=== PATIENT | female | born 1975 | race American Indian/Alaskan Native ===

== ENCOUNTER 2016-09-16 08:50 | Emergency (ER) | payer SELFPAY ==
[2016-09-16 09:09] VITALS: BP 125/77
--- NOTE | 2016-09-16 10:43 | Emergency Department Report ---
- General Chief Complaint: Upper Respiratory Infection Stated Complaint: GENERAL BODY PAIN Time Seen by Provider: 09/16/16 10:14 Source: patient Mode of arrival: Ambulatory Limitations: No Limitations - History of Present Illness Initial Comments: Patient here reports cough, body ache, headache and sore throat and fever. Denies any nausea vomiting. She said this started a couple days ago. She says she felt hot but she did not actually take her temperature. Pain is 10 out of 10 generalized. Denies any drooling or difficulty swallowing. Denies any chest pain. MD Complaint: fever, cough, sore throat, rhinorrhea, nasal congestion Onset/Timin -: days(s) Severity: severe Severity scale (0 -10): 10 Quality: aching Consistency: constant Improves With: OTC cold medicine Worsens With: nothing Context: sick contacts Associated Symptoms: fever, chills, myalgias, diaphoresis, headache, rhinorrhea , nasal congestion, sore throat, cough. denies: stiff neck, chest pain, shortness of breath, abdominal pain, nausea, vomiting, diarrhea, dysuria, rash, confusion, right sweats, weight loss, epistaxis, hoarseness, ear pain Treatments Prior to Arrival: "cold medicine" - Related Data Previous Rx's Medication Instructions Recorded Last Taken Type Acetaminophen/Codeine [Tylenol #3] 1 tab PO Q6H PRN #15 tab 12/27/14 Unknown Rx Ibuprofen [Motrin] 800 mg PO Q8H #30 tablet 12/27/14 Unknown Rx Brompheniramine/Pseudoephed/Dm 10 ml PO TID PRN #150 syrup 09/16/16 Unknown Rx [Bromfed Dm Cough Syrup] Fluticasone [Flonase] 1 spray NS QDAY #1 bottle 09/16/16 Unknown Rx Ibuprofen [Motrin] 600 mg PO Q8H PRN #21 tablet 09/16/16 Unknown Rx Promethazine [Phenergan TAB] 25 mg PO Q8HR PRN #15 tab 09/16/16 Unknown Rx Allergies Allergy/AdvReac Type Severity Reaction Status Date / Time No Known Allergies Allergy Verified 12/27/14 07:32 ED Review of Systems ROS: Stated complaint: GENERAL BODY PAIN Other details as noted in HPI Comment: All other systems reviewed and negative Constitutional: chills, fever Eyes: denies: eye discharge ENT: throat pain, congestion. denies: ear pain Respiratory: cough. denies: orthopnea, shortness of breath, SOB with exertion, SOB at rest, stridor, wheezing Cardiovascular: denies: chest pain, palpitations, edema, syncope Gastrointestinal: denies: abdominal pain, nausea, vomiting, diarrhea Musculoskeletal: arthralgia. denies: back pain Skin: denies: rash Neurological: headache. denies: weakness, numbness, paresthesias, confusion, abnormal gait, vertigo ED Past Medical Hx - Past Medical History Previous Medical History?: No Hx Hypertension: No - Surgical History Past Surgical History?: No - Family History Family history: no significant - Social History Smoking Status: Never Smoker Substance Use Type: None - Medications Home Medications: Home Medications Medication Instructions Recorded Confirmed Last Taken Type Acetaminophen/Codeine [Tylenol #3] 1 tab PO Q6H PRN #15 tab 12/27/14 Unknown Rx Ibuprofen [Motrin] 800 mg PO Q8H #30 tablet 12/27/14 Unknown Rx Brompheniramine/Pseudoephed/Dm 10 ml PO TID PRN #150 syrup 09/16/16 Unknown Rx [Bromfed Dm Cough Syrup] Fluticasone [Flonase] 1 spray NS QDAY #1 bottle 09/16/16 Unknown Rx Ibuprofen [Motrin] 600 mg PO Q8H PRN #21 tablet 09/16/16 Unknown Rx Promethazine [Phenergan TAB] 25 mg PO Q8HR PRN #15 tab 09/16/16 Unknown Rx ED Physical Exam - General Limitations: No Limitations General appearance: alert, in no apparent distress - Head Head exam: Present: atraumatic, normocephalic, normal inspection - Eye Eye exam: Present: normal appearance, PERRL, EOMI. Absent: periorbital swelling , periorbital tenderness Pupils: Present: normal accommodation - ENT ENT exam: Present: normal exam, normal orophraynx, mucous membranes moist, TM's normal bilaterally (bilateral TMs congested without erythema), normal external ear exam, other (bilateral nasal mucosa congested with erythema. Maxillary and frontal sinuses nontender to palpate.) - Neck Neck exam: Present: normal inspection, full ROM. Absent: tenderness, meningismus, lymphadenopathy - Respiratory Respiratory exam: Present: normal lung sounds bilaterally. Absent: respiratory distress, wheezes, rales, rhonchi, stridor, chest wall tenderness, accessory muscle use - Cardiovascular Cardiovascular Exam: Present: normal rhythm, tachycardia, normal heart sounds - GI/Abdominal GI/Abdominal exam: Present: soft, normal bowel sounds. Absent: distended, tenderness, guarding, rebound, rigid - Extremities Exam Extremities exam: Present: normal inspection, full ROM, normal capillary refill. Absent: tenderness, pedal edema, joint swelling, calf tenderness - Back Exam Back exam: Present: normal inspection, full ROM. Absent: tenderness, CVA tenderness (R), CVA tenderness (L), muscle spasm, paraspinal tenderness, rash noted - Neurological Exam Neurological exam: Present: alert, oriented X3, normal gait, reflexes normal. Absent: motor sensory deficit - Psychiatric Psychiatric exam: Present: normal affect, normal mood - Skin Skin exam: Present: warm, dry, intact, normal color, rash ED Course Vital Signs 09/16/16 09/16/16 09:06 11:05 Temperature 99.2 F Pulse Rate 104 H Respiratory 20 18 Rate Blood Pressure 125/77 O2 Sat by Pulse 99 Oximetry Vital Signs 09/16/16 09/16/16 09/16/16 09:06 11:05 12:01 Temperature 99.2 F Pulse Rate 104 H 92 H Respiratory 20 18 Rate Blood Pressure 125/77 O2 Sat by Pulse 99 97 Oximetry - Reevaluation(s) Reevaluation #1: 09/16/16 11:49 Patient given Motrin 800 mg in emergency room for bodyache. ED Medical Decision Making - Lab Data test negative. Influenza A and B- - Radiology Data Radiology results: image reviewed interpreted by me: X-ray reviewed by myself and Dr. Zayas and patient doesn't have any acute cardiopulmonary processes. - Medical Decision Making ED course: I discussed with patient her chest x-ray, influenza and test result. I discussed with her that she has a viral syndrome and she does not need antibiotic. She was understanding. Patient discharged home with prescription for Claritin, Flonase and Bromfed. Critical care attestation.: If time is entered above; I have spent that time in minutes in the direct care of this critically ill patient, excluding procedure time. ED Disposition Clinical Impression: Viral syndrome, Cough Disposition: DISCHARGED TO HOME OR SELFCARE Is pt being admited?: No Does the pt Need Aspirin: No Condition: Stable Instructions: Viral Syndrome (ED), Acute Cough (ED) Additional Instructions: Please increase her fluid intake to 2-3 L of fluid per day. [id number] Motrin for the next 1-2 days every 4-6 hours to keep temperature down. You can take vitamin C as immune system booster Prescriptions: Brompheniramine/Pseudoephed/Dm [Bromfed Dm Cough Syrup] 10 ml PO TID PRN #150 syrup PRN Reason: Cough Fluticasone [Flonase] 1 spray NS QDAY #1 bottle Ibuprofen [Motrin] 600 mg PO Q8H PRN #21 tablet PRN Reason: Pain Promethazine [Phenergan TAB] 25 mg PO Q8HR PRN #15 tab PRN Reason: Nausea Referrals: PRIMARY CARE, [Primary Care Provider] - 3-5 Days Forms: Work/School Release Form(ED), Accompanied Note
[2016-09-16] MEDS ORDERED: MOTRIN PO ONE (10:44)
[2016-09-16] MEDS ORDERED: ZOFRAN ODT PO ONE (10:52)
--- NOTE | 2016-09-16 12:01 | XRay Report ---
CHEST 2 VIEWS INDICATION: Cough, fever. COMPARISON: 06/27/2007. FINDINGS: PA and lateral chest radiographs demonstrate normal cardiomediastinal silhouette. Clear lungs. Intact bones. CONCLUSION: No acute disease in the chest. Thank you for the opportunity to participate in this patient's care.
== END 2016-09-16 12:11 | disposition home or self-care (01) ==
LOC: ED 08:50
DX: B34.9 Viral infection, unspecified (principal); R05 Cough
CPT/HCPCS: 71020; 81025; 87400; Q0162

== ENCOUNTER 2021-08-22 10:01 | Emergency (ER) | payer OTHER ==
--- NOTE | 2021-08-22 10:55 | Emergency Department Report ---
- General Chief Complaint: Upper Respiratory Infection Stated Complaint: NO SMELL FOR A MONTH Time Seen by Provider: 08/22/21 10:37 Source: patient Mode of arrival: Ambulatory Limitations: No Limitations - History of Present Illness Initial Comments: Patient is a 46-year-old female presents emergency room with complaints of a cough that began a week and a half ago. She has associated mucus production. Patient states that she is also been experiencing shortness of breath, nasal congestion, nausea. She states yesterday she had some vomiting that has resolved and she has been able to tolerate p.o. intake. She denies any fever, body aches, diarrhea, chest pain. Patient states that she has been tested for COVID-19 twice and reports that it was negative. She states that she has also lost her sense of smell. She has a past medical history of hypertension and borderline diabetes. No allergies to medications. - Related Data Previous Rx's Medication Instructions Recorded Last Taken Type Acetaminophen/Codeine [Tylenol #3] 1 tab PO Q6H PRN #15 tab 12/27/14 Unknown Rx Ibuprofen [Motrin] 800 mg PO Q8H #30 tablet 12/27/14 Unknown Rx Brompheniramine/Pseudoephed/Dm 10 ml PO TID PRN #150 syrup 09/16/16 Unknown Rx [Bromfed Dm Cough Syrup] Fluticasone [Flonase] 1 spray NS QDAY #1 bottle 09/16/16 Unknown Rx Ibuprofen [Motrin] 600 mg PO Q8H PRN #21 tablet 09/16/16 Unknown Rx Promethazine [Phenergan TAB] 25 mg PO Q8HR PRN #15 tab 09/16/16 Unknown Rx Amoxicillin/Potassium Clav 1 each PO BID #20 tablet 07/28/18 Unknown Rx [Augmentin 875-125 Tablet] Ibuprofen [Ibuprofen 800] 800 mg PO TID PRN #30 tablet 07/28/18 Unknown Rx diphenhydrAMINE [Benadryl CAP] 25 mg PO Q8HR PRN #30 capsule 07/28/18 Unknown Rx Albuterol Sulfate [Proventil Hfa] 1 puff IH TID PRN #1 08/22/21 Unknown Rx Benzonatate [Tessalon Perles] 100 mg PO Q8HR PRN #12 cap 08/22/21 Unknown Rx Fluticasone [Flonase] 1 spray NS QDAY #1 bottle 08/22/21 Unknown Rx Prednisone [predniSONE 10 mg 10 mg PO .TAPER #1 08/22/21 Unknown Rx (6-Day Pack, 21 Tabs)] guaiFENesin ER [Mucinex ER] 600 mg PO Q12H #14 tab 08/22/21 Unknown Rx Allergies Allergy/AdvReac Type Severity Reaction Status Date / Time No Known Allergies Allergy Verified 12/27/14 07:32 ED Review of Systems ROS: Stated complaint: NO SMELL FOR A MONTH Other details as noted in HPI Comment: All other systems reviewed and negative ED Past Medical Hx - Past Medical History Previous Medical History?: Yes Hx Hypertension: Yes Hx Diabetes: Yes (pre-diabetes) - Surgical History Past Surgical History?: No - Social History Smoking Status: Never Smoker Substance Use Type: None - Medications Home Medications: Home Medications Medication Instructions Recorded Confirmed Last Taken Type Acetaminophen/Codeine [Tylenol #3] 1 tab PO Q6H PRN #15 tab 12/27/14 Unknown Rx Ibuprofen [Motrin] 800 mg PO Q8H #30 tablet 12/27/14 Unknown Rx Brompheniramine/Pseudoephed/Dm 10 ml PO TID PRN #150 syrup 09/16/16 Unknown Rx [Bromfed Dm Cough Syrup] Fluticasone [Flonase] 1 spray NS QDAY #1 bottle 09/16/16 Unknown Rx Ibuprofen [Motrin] 600 mg PO Q8H PRN #21 tablet 09/16/16 Unknown Rx Promethazine [Phenergan TAB] 25 mg PO Q8HR PRN #15 tab 09/16/16 Unknown Rx Amoxicillin/Potassium Clav 1 each PO BID #20 tablet 07/28/18 Unknown Rx [Augmentin 875-125 Tablet] Ibuprofen [Ibuprofen 800] 800 mg PO TID PRN #30 tablet 07/28/18 Unknown Rx diphenhydrAMINE [Benadryl CAP] 25 mg PO Q8HR PRN #30 capsule 07/28/18 Unknown Rx Albuterol Sulfate [Proventil Hfa] 1 puff IH TID PRN #1 08/22/21 Unknown Rx Benzonatate [Tessalon Perles] 100 mg PO Q8HR PRN #12 cap 08/22/21 Unknown Rx Fluticasone [Flonase] 1 spray NS QDAY #1 bottle 08/22/21 Unknown Rx Prednisone [predniSONE 10 mg 10 mg PO .TAPER #1 08/22/21 Unknown Rx (6-Day Pack, 21 Tabs)] guaiFENesin ER [Mucinex ER] 600 mg PO Q12H #14 tab 08/22/21 Unknown Rx ED Physical Exam - General Limitations: No Limitations General appearance: alert, in no apparent distress - Head Head exam: Present: atraumatic, normocephalic - Eye Eye exam: Present: normal appearance - ENT ENT exam: Present: normal orophraynx, mucous membranes moist, TM's normal bilaterally, normal external ear exam, other (mild edema of the nasal turbinates) - Respiratory Respiratory exam: Present: normal lung sounds bilaterally. Absent: respiratory distress, wheezes, rales, rhonchi, stridor, chest wall tenderness, accessory muscle use, decreased breath sounds, prolonged expiratory - Cardiovascular Cardiovascular Exam: Present: regular rate, normal rhythm, normal heart sounds. Absent: systolic murmur, diastolic murmur, rubs, gallop - Neurological Exam Neurological exam: Present: alert, oriented X3 - Psychiatric Psychiatric exam: Present: normal affect, normal mood - Skin Skin exam: Present: warm, dry, intact ED Course Vital Signs 08/22/21 10:40 Temperature 98.1 F Pulse Rate 86 Respiratory 18 Rate Blood Pressure 107/76 [Right] O2 Sat by Pulse 97 Oximetry ED Medical Decision Making - Radiology Data Radiology results: report reviewed Ordering Physician: KAYLYNN ECHEVERRIA Date of Service: 08/22/21 Procedure(s): XR chest routine 2V Accession Number(s): [id number] cc: KAYLYNN ECHEVERRIA Fluoro Time In Minutes: CHEST PA AND LATERAL VIEWS INDICATION: cough, sob. COMPARISON: 09/16/2016. FINDINGS: Support devices: None. Heart: Within normal limits. Lungs/Pleura: No acute pulmonary or pleural findings. IMPRESSION: 1. No acute findings. Signer Name: Manfred Hare MD Signed: 08/22/2021 11:52 AM Workstation Name: [id number] Transcribed By: MARIAA Dictated By: Manfred Hare MD Electronically Authenticated By: Manfred Hare MD Signed Date/Time: 08/22/21 1152 DD/ 1152 TD/TT: - Medical Decision Making Patient is a 46-year-old female presents emergency room with complaints of a cough that began a week and a half ago. She has associated mucus production. Patient states that she is also been experiencing shortness of breath, nasal congestion, nausea. She states yesterday she had some vomiting that has resolved and she has been able to tolerate p.o. intake. She denies any fever, body aches, diarrhea, chest pain. Patient states that she has been tested for COVID-19 twice and reports that it was negative. She states that she has also lost her sense of smell. She has a past medical history of hypertension and borderline diabetes. No allergies to medications. Vitals are normal. Patient has no fever, no tachycardia, no hypoxia. Breath sounds are clear bilaterally, no wheezing, no rales, no rhonchi. Chest x-ray 1. No acute findings. Symptoms and examination appear likely consistent with bronchitis. She has no signs of bacterial pneumonia, no infiltrates on x-ray. Do not suspect bacterial bronchitis, she is not a smoker, she has no immunocompromise, she is afebrile, no chronic lung conditions. Patient given prescription for medications. Advised patient please take medication as prescribed. Increase your fluid intake. Follow-up with your primary care doctor for reexamination. Return to emergency room for any new or worsening symptoms. Please be sure to watch your blood glucose at home as prednisone can increase your sugar, if your sugar is greater than 250 please stop the prednisone. Critical care attestation.: If time is entered above; I have spent that time in minutes in the direct care of this critically ill patient, excluding procedure time. ED Disposition Clinical Impression: Acute bronchitis Qualifiers: Bronchitis organism: unspecified organism Qualified Code(s): J20.9 - Acute bronchitis, unspecified Disposition: HOME / SELF CARE / HOMELESS Is pt being admited?: No Does the pt Need Aspirin: No Condition: Stable Instructions: Acute Bronchitis (ED), Acute Bronchitis, Adult Additional Instructions: please take medication as prescribed. Increase your fluid intake. Follow-up with your primary care doctor for reexamination. Return to emergency room for any new or worsening symptoms. Please be sure to watch your blood glucose at home as prednisone can increase your sugar, if your sugar is greater than 250 please stop the prednisone. Prescriptions: Fluticasone [Flonase] 1 spray NS QDAY #1 bottle guaiFENesin ER [Mucinex ER] 600 mg PO Q12H #14 tab Prednisone [predniSONE 10 mg (6-Day Pack, 21 Tabs)] 10 mg PO .TAPER #1 Albuterol Sulfate [Proventil Hfa] 1 puff IH TID PRN #1 PRN Reason: shortness of breath/wheezing Benzonatate [Tessalon Perles] 100 mg PO Q8HR PRN #12 cap PRN Reason: cough Referrals: PRIMARY CAREMD [Primary Care Provider] - 3-5 Days ALE DANIELS MD [Staff Physician] - 3-5 Days [facility] [Provider Group] - 3-5 Days Time of Disposition: 12:04 Print Language: TURKISH
[2021-08-22 11:24] LABS: HCG Qualitative,Urine Negative (Negative)
--- NOTE | 2021-08-22 11:57 | XRay Report ---
CHEST PA AND LATERAL VIEWS INDICATION: cough, sob. COMPARISON: 09/16/2016. FINDINGS: Support devices: None. Heart: Within normal limits. Lungs/Pleura: No acute pulmonary or pleural findings. IMPRESSION: 1. No acute findings. Signer Name: Manfred Hare MD Signed: 08/22/2021 11:52 AM Workstation Name: [id number]
[2021-08-22 12:33] VITALS: BP 124/55
== END 2021-08-22 12:32 | disposition home or self-care (01) ==
LOC: ED 10:01
DX: J20.9 Acute bronchitis, unspecified (principal); I10 Essential (primary) hypertension; E11.9 Type 2 diabetes mellitus without complications; Z79.899 Other long term (current) drug therapy
CPT/HCPCS: 71046; 81025; 99283